=== PATIENT | male | born 2000 | race Asian ===

== ENCOUNTER 2018-08-21 01:30 | Emergency (ER) | payer BC ==
[~2018-08-21] VITALS: Ht 170.2 cm; Wt 66.7 kg
[2018-08-21 01:31] VITALS: BP 112/73
--- NOTE | 2018-08-21 01:38 | NUR ---
PATIENT AMB WITH FRIEND TO LOBBY. FRANCES. ROMULOO
--- NOTE | 2018-08-21 01:58 | NUR ---
PT AMBULATED TO ER BED 10 WITH FRIEND
--- NOTE | 2018-08-21 02:14 | NUR ---
BIBA WITH REPORTS OF DRINKING "A LOT" OF VODKA AT [facility]. STATES HE HAS NOT HAD THIS MUCH TO DRINK IN THE PAST. +NAUSEA, +VOMITING. SPEAKING IN FULL SENTENCES. FRIEND AT BEDSIDE. STEADY GAIT.
--- NOTE | 2018-08-21 04:50 | NUR ---
PT ALERT AND UP AND WALKING W/STEADY GATE. PT SPEAKING IN CLEAR AND COMPLETE SENTENCES.
[2018-08-21] MEDS ORDERED: NACL 0.9% 1,000 ML IV ONE (06:15)
[2018-08-21 06:42] VITALS: BP 108/66
== END 2018-08-21 06:44 | disposition home or self-care (01) ==
LOC: MED 01:30
DX: F10.129 Alcohol abuse with intoxication, unspecified (principal); Z88.1 Allergy status to other antibiotic agents; Y90.9 Presence of alcohol in blood, level not specified
CPT/HCPCS: 99283